=== PATIENT | female | born 1995 | race Caucasian/White ===

== ENCOUNTER 2017-10-17 23:25 | Emergency (ER) | payer BC ==
[~2017-10-17] VITALS: Ht 157.5 cm; Wt 59.3 kg
[2017-10-17 23:28] VITALS: TEMP 36.8; Ht 157.5 cm; Wt 59.3 kg
[2017-10-17] MEDS ORDERED: ALBUT/IPRATROP 3MG/0.5MG NEB 3 ML VIAL INH STA (23:49)
[2017-10-18] MEDS ORDERED: ALBUTEROL HFA 8 GM INHALER INH STA (00:58)
--- NOTE | 2017-10-18 01:05 | DIAGNOSTIC IMAGING REPORT ---
TWO VIEW CHEST CLINICAL HISTORY: Cough. Chest tightness. FINDINGS: PA and lateral chest radiographs are obtained. No prior studies are available for comparison at the time of dictation. The cardiomediastinal silhouette is unremarkable. The lungs and pleural spaces are clear. There is no pneumothorax. The bony thorax appears intact. There is S-shaped thoracolumbar scoliosis. IMPRESSION: No active disease in the chest. Electronically signed by: Conor Hdez M.D. 10/18/2017 1:04 AM Dictated Date/Time: 10/18/2017 1:03 AM
[2017-10-18 01:06] VITALS: BP 114/71; PULSE 85; O2SAT 99
--- NOTE | 2017-10-18 06:53 | EMERGENCY ROOM VISIT NOTE ---
History First contact with patient: 23:33 Chief Complaint: RESPIRATORY PROBLEMS Stated Complaint: TIGHTNESS IN CHEST, RED SKIN History of Present Illness The patient is a 22 year old female who presents to the Emergency Room with complaints of redness to face and chest for the past few days has been taking Tamiflu for a told by urgent care. Patient states she still has a cough. No chest x-ray was done. Patient denies itching, chest pain, dyspnea, throat tightness, sore throat, swelling, new food soaps or detergents. She is tolerating p.o. fluids and food. Review of Systems An 10 system review of systems was completed with positives and pertinent negatives listed in the HPI. Past Medical/Surgical History None Social History Smoking Status: Never Smoker Smokeless Tobacco Use: No Drug Use: none Marital Status: single Occupation Status: [employer] student Physical Exam Vital Signs Date Time Temp Pulse Resp B/P (MAP) Pulse Ox O2 Delivery O2 Flow Rate FiO2 10/18/17 01:06 85 18 114/71 99 10/17/17 23:58 99 Room Air 10/17/17 23:28 36.8 89 18 126/90 99 Room Air Physical Exam VITALS: Vitals are noted on the nurse's note and reviewed by myself. Vital signs stable. GENERAL: Pleasant female speaking in full sentences, in no acute distress, nondiaphoretic, well-developed well-nourished. SKIN: Face and chest slightly erythematous that is blanchable; the rest of the skin was without rashes, erythema, edema, or bruising. There is no tenting of the skin. Capillary reflex less than 2 seconds. HEAD: Normocephalic atraumatic. EARS: External auditory canals clear, tympanic membranes pearly alvarez without erythema or effusion bilaterally. EYES: Pupils equal round and reactive to light and accommodation. Conjunctivae without injection, sclerae without icterus. Extraocular movements intact. NOSE: Patent, turbinates without inflammation or discharge. No sinus tenderness. MOUTH: Mucous membranes moist. Pharynx without erythema or exudate. Uvula midline. Airway patent. Tongue does not deviate. NECK: Supple without nuchal rigidity. No lymphadenopathy. No thyromegaly. Cervical spine is nontender. No JVD. HEART: Regular rate and rhythm without murmurs gallops or rubs. LUNGS: Clear to auscultation bilaterally without wheezes, rales or rhonchi. No dullness to percussion. No retractions or accessory muscle use. ABDOMEN: Positive bowel sounds x 4. Normal tympanic percussion. Soft, nontender, without masses or organomegaly. Mallory sign negative. No guarding or rebound tenderness. MUSCULOSKELETAL: No muscle atrophy, erythema, or edema noted. NEURO: Patient was alert and oriented to person place and time. No focal neurological deficits. Medical Decision & Procedures Medications Administered Medications (Trade) Dose Ordered Sig/Audra Route Start Time Stop Time Status Last Admin Dose Admin Albuterol/ Ipratropium (Duoneb) 3 ml NOW STAT INH 10/17/17 23:49 10/17/17 23:52 DC 10/17/17 23:56 3 ML Diphenhydramine HCl (Benadryl Cap) 50 mg NOW ONCE PO 10/18/17 00:00 10/18/17 00:01 DC 10/17/17 23:56 50 MG Albuterol (Ventolin Hfa Inhaler) 2 puffs ONE STAT INH 10/18/17 00:58 10/18/17 00:59 DC 10/18/17 00:58 2 PUFFS ED Course Prior records/ancillary studies reviewed. Triage Nursing notes reviewed. Additional history obtained from friend. The patient's history was concerning for possible allergic reaction. Differential diagnosis: Etiologies such as allergic reaction, anaphylaxis, urticaria, Phillip-Raphael syndrome, toxic epidermal necrolysis, erythema multiforme, cellulitis, as well as others were entertained. Physical examination: As above. ER treatment provided: Continuous cardiac monitoring Benadryl 50 mg PO Nebulizer, albuterol On reassessment the patient felt better. Diagnostic interpretation by me: [~ rep ct add3]] TWO VIEW CHEST CLINICAL HISTORY: Cough. Chest tightness. FINDINGS: PA and lateral chest radiographs are obtained. No prior studies are available for comparison at the time of dictation. The cardiomediastinal silhouette is unremarkable. The lungs and pleural spaces are clear. There is no pneumothorax. The bony thorax appears intact. There is S-shaped thoracolumbar scoliosis. IMPRESSION: No active disease in the chest. Electronically signed by: Conor Hdez M.D. 10/18/2017 1:04 AM It appears the patient had a mild allergic reaction with bronchitis. The above treatment did well to reverse the symptoms. After prolonged monitoring and frequent reassessments the patient did very well and symptoms resolved. The patient was counseled on the spectrum of this disease process and told to avoid potential triggers. I gave my usual and customary discussion regarding this issue. Patient was advised to stop the Tamiflu. The inhaler helped and patient was advised to use his for cough. She is advised to follow-up health services a few days here in the ER sooner for chest pain, difficulty breathing, worsening signs or symptoms or as needed. Patient had no pneumonia on x-ray. She is well appearing. No signs of airway compromise. By the evaluation outlined above emergent etiologies such as recurring anaphylaxis, anaphylatic shock, airway compromise, Phillip-Raphael syndrome, toxic epidermal necrolysis, erythema multiforme, infectious etiologies, as well as others were deemed relatively unlikely. The pt informed about the findings as listed above. All questions were answered and pleased with the treatment. Return instructions were outlined and the patient was discharged in stable condition. Referral: The patient was referred back to primary care physician for follow-up in 2-3 days for a recheck of the current condition. Medical Decision As above Medication Reconcilliation Current Medication List: was personally reviewed by me Blood Pressure Screening Patient's blood pressure: Normal blood pressure Impression Primary Impression: Allergic reaction Departure Information Dispostion Home / Self-Care Condition GOOD Forms WORK / SCHOOL INSTRUCTIONS, HOME CARE DOCUMENTATION FORM, IMPORTANT VISIT INFORMATION Patient Instructions [facility], ED Allergic Reaction General Other Additional Instructions DO NOT drive, drink alcohol, operate machinery, or perform dangerous activities today. You were given medications in the ER that can affect your ability to safely function or operate a vehicle. Stop the Tamiflu. Diphenhydramine(Benadryl) 25mg: use 25 to 50 mg every six hours for swelling, itching, or hives. This medication is sedating and will cause drowsiness. Avoid alcohol, operating machinery or dangerous equipment, working on ladders or roofs, DRIVING, or situations where being under the influence may be dangerous. Zantac 75: Take two pills twice a day along with Benadryl as needed for swelling , itching, or hives. Most people know this for its affect on the stomach, but it also acts similar to, but less potent than Benadryl for allergic reactions. Both the Benadryl and the Zantac are available [id number]. Continue current medications. Return to the emergency department for worsening of your rash, swelling of your face, lips, tongue, or throat, difficulty breathing, vomiting, or as needed. Follow-up with your primary care physician in 2 to 3 days for a recheck of your current condition. Problem Qualifiers Primary Impression: Allergic reaction Encounter type: initial encounter Qualified Codes: T78.40XA - Allergy, unspecified, initial encounter
== END 2017-10-18 01:06 | disposition home or self-care (01) ==
LOC: C.EDB 23:26
DX: T78.40XA Allergy, unspecified, initial encounter (principal); X58.XXXA Exposure to other specified factors, initial encounter